=== PATIENT | male | born 2000 | race Hispanic/Latino ===

== ENCOUNTER → 2023-04-01 | Emergency (ER) | payer OTHER ==
[~2023-04-01] MED LIST: ACETAMINOPHEN 500 MG TAB ONE; KETOROLAC 30 MG/ML INJ ONE; TDAP (DIPHTH,PERTUSS(ACELL),TET VAC) 0.5 ML VIAL IMVAC ONE
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
--- NOTE | 2023-04-01 20:13 | RAD REPORT ---
EXAM DESCRIPTION: CT - Spine Lumbar Wo Con - 04/01/2023 7:56 pm CLINICAL HISTORY: Radiculopathy. trauma COMPARISON: No comparisons TECHNIQUE: Axial noncontrast CT imaging of the lumbar spine was performed with coronal and sagittal re-formatted images. All CT scans are performed using dose optimization technique as appropriate and may include automated exposure control or mA/KV adjustment according to patient size. FINDINGS: No acute lumbar spine fracture seen. No aggressive marrow pattern or malalignment. Paraspinal tissues are normal in thickness. No paraspinal abscess or hematoma seen. Mild posterior disc bulging is seen lower lumbar levels. IMPRESSION: No acute abnormality detected.
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
[2023-04-01 21:21] VITALS: BP 126/85; TEMP 98.4; O2SAT 100
== END ==
LOC: ER 19:21
DX: S00.212A Abrasion of left eyelid and periocular area, initial encounter (principal); S00.83XA Contusion of other part of head, initial encounter; M54.2 Cervicalgia; M54.9 Dorsalgia, unspecified; Y04.8XXA Assault by other bodily force, initial encounter; Y92.149 Unspecified place in prison as the place of occurrence of the external cause; Z23 Encounter for immunization; F17.210 Nicotine dependence, cigarettes, uncomplicated
CPT/HCPCS: 70450; 70486; 71045; 72125; 72128; 72131; 76377; 90471; 96372; 99284